=== PATIENT | female | born 1995 | race Caucasian/White ===

== ENCOUNTER 2018-06-23 10:37 | Observation (INO) | payer BC ==
[2018-06-23] MEDS ORDERED: Water For Irrigation,Sterile 1,000 ML Container IRR PRN (11:53)
[2018-06-23] MEDS ORDERED: Misoprostol 200 MCG Tab PO PRN (11:53)
[2018-06-23] MEDS ORDERED: Tranexamic Acid 1,000 MG in Sodium Chloride 0.9% 100 ML IV PRN (11:53)
[2018-06-23] MEDS ORDERED: Lidocaine 1% 50 ML MDV INJECT PRN (11:53)
[2018-06-23] MEDS ORDERED: Carboprost Tromethamine 250 MCG/1 ML Amp IM PRN (11:53)
[2018-06-23] MEDS ORDERED: Sodium Chloride 0.9% 2.5 ML Syringe FLUSH PRN (11:53)
[2018-06-23] MEDS ORDERED: Calcium Gluconate 10% 1 GM/10 ML SDV IVPUSH PRN (11:53)
[2018-06-23] MEDS ORDERED: Methylergonovine 0.2 MG/1 ML Amp IM PRN (11:53)
[2018-06-23] MEDS ORDERED: Magnesium Sulfate/Water 4 GM in Premix Bag 1 BAG IV ONE (11:53)
[2018-06-23] MEDS ORDERED: Butorphanol 1 MG/ML SDV IVPUSH PRN (11:53)
[2018-06-23] MEDS ORDERED: Nalbuphine 10 MG/1 ML Vial IVPUSH PRN (11:53)
[2018-06-23] MEDS ORDERED: Sodium Chloride 0.9% 10 ML Syringe FLUSH PRN (11:53)
[2018-06-23] MEDS ORDERED: Lactated Ringers 1,000 ML IV SCH (12:00)
[2018-06-23] MEDS ORDERED: Oxytocin/0.9 % Sodium Chloride 30 UNIT/500 ML BAG IV SCH (12:00)
[2018-06-23] MEDS ORDERED: Magnesium Sulfate/Water 40 GM/1,000 ML BAG IV SCH (12:00)
[2018-06-23 15:48] LABS: CHLORIDE,CL 102 mmol/L (98-107); SODIUM,NA 132 mmol/L (136-145)
[2018-06-24] MEDS ORDERED: Betamethasone Acetate/Betamethasone Sod Phosphate 30 MG/5 ML MDV IM SCH (10:00)
== END 2018-06-23 17:10 ==
LOC: MW.OBCHECK 10:37 → MW.OB 10:45 → MW.OBCHECK 12:17
PROVIDERS: ADMIT Obstetrics & Gynecology; ATTEND Obstetrics & Gynecology
DX: O69.81X0 Labor and delivery complicated by cord around neck, without compression, not applicable or unspecified (principal); Z3A.30 30 weeks gestation of pregnancy
CPT/HCPCS: 36415; 59025; 80053; 81001; 83735; 85027; 86850; 86900; 86901; 96374; G0378; J3475; J7120

== ENCOUNTER 2020-07-20 14:20 | Emergency (ER) | payer BC ==
--- NOTE | 2020-07-20 14:32 | EDM.PDOC ---
ED HPI GENERAL MEDICAL PROBLEM - General Source of Information: Reports: Patient History Limitations: Reports: No Limitations - History of Present Illness Duration: Day(s): - General Chief Complaint: ELIGIBILITY AND OCCUPANCY INTERVIEWER Problem Stated Complaint: BLEEDING DURING Time Seen by Provider: 07/20/20 14:21 - History of Present Illness INITIAL COMMENTS - FREE TEXT/NARRATIVE: HISTORY AND PHYSICAL: History of present illness: Patient is a 24-year-old female who presents to the emergency room with with concerns of vaginal bleeding in . She states she has had vaginal bleeding over the past 3 to 4 days. She did see an ELIGIBILITY AND OCCUPANCY INTERVIEWER, Dr Dumont at [facility], on Tuesday who did a bedside ultrasound and lab work and told her she was "okay". She was encouraged to continue to monitor her bleeding. Today she believed she was bleeding more heavily and had increased pressure/cramping in her pelvis. LMP mid May 2020, believes she is approximately 10 weeks. 2, para 1. No previous ELIGIBILITY AND OCCUPANCY INTERVIEWER complications. Patient denies any fever, chills, headache, change in vision, syncope or near syncope. Denies any chest pain, back pain, shortness of breath or cough. Denies any nausea, vomiting, diarrhea, constipation or dysuria. Has not noted any blood in urine or stool. Patient has been eating and drinking appropriately. Review of systems: As per history of present illness and below otherwise all systems reviewed and negative. Past medical history: As per history of present illness and as reviewed below otherwise noncontributory. Surgical history: As per history of present illness and as reviewed below otherwise noncontributory. Social history: See social history for further information Family history: As per history of present illness and as reviewed below otherwise noncontributory. Physical exam: General: Well developed and well nourished. Alert and orientated x 3. Nontoxic in appearance and in no acute distress. Vital signs are stable and have been reviewed by me. Nursing notes were reviewed. HEENT: Atraumatic, normocephalic, pupils equal and reactive bilaterally, negative for conjunctival pallor or scleral icterus, mucous membranes moist, TMs normal bilaterally, throat clear, neck supple, nontender, trachea midline. No drooling or trismus noted. No meningeal signs. No hot potato voice noted. Lungs: Clear to auscultation, breath sounds equal bilaterally, chest nontender. Normal work of breathing, no accessory muscles used. Heart: S1S2, regular rate and rhythm without overt murmur Abdomen: Soft, nondistended, nontender. Negative for masses or hepatosplenomegaly. Negative for costovertebral tenderness. Pelvis: Stable nontender. Genitourinary: Patient declines wanting a pelvic exam done. Skin: Intact, warm, dry. No lesions or rashes noted. Hematologic: No petechiae or purpra. Mucosa appropriate color and normal nail bed color and refill. Extremities: Atraumatic, moves all extremities per self without difficulty or deficits, negative for cords or calf pain. Neurovascular unremarkable. Neuro: Awake, alert, oriented. Cranial nerves II through XII unremarkable. Cereb ellum unremarkable. Motor and sensory unremarkable throughout. Exam nonfocal. Psychiatric: Mood and affect are appropriate. Normal thought process. Answering questions appropriately. Notes: Patient declines wanting to have a pelvic exam done stating that her ELIGIBILITY AND OCCUPANCY INTERVIEWER just did one on Tuesday. She is requesting lab work and ultrasound. Ultrasound shows a single live IUP, heart rate 195, gestational age of 9 weeks and 5 days. Lab work is unremarkable. I have spoken with the patient and discussed today's findings, in addition to providing specific details for plan of care. Reassessment at the time of disposition demonstrates that the patient is in no acute distress. The patient has remained stable throughout the entire ED visit and is without objective evidence for acute process requiring urgent intervention or hospitalization. The patient is stable for discharge, counseling was provided and we discussed in great detail signs and symptoms that would prompt them to return to the Emergency Department. We discussed the need for follow-up with her ELIGIBILITY AND OCCUPANCY INTERVIEWER and repeating her quantitative hCG, to call on Tuesday. Supportive care measures were reviewed and discussed. Voices understanding and is agreeable to plan of care. Denies any further questions or concerns at this time. Diagnostics: CBC, CMP, UA, urine culture, quantitative hCG, OB ultrasound Therapeutics: None Prescription: None Impression: Threatened miscarriage Plan: 1. Please start and/or continue to take your vitamin with folic acid once daily. 2. Pelvic rest until cleared by your OBGYN (no tampons, sex, etc...) 3. Tylenol as needed for pain management. 4. Follow up with her ELIGIBILITY AND OCCUPANCY INTERVIEWER in the next 1-2 days, you should have a repeat quantitative HCG on Tuesday. 5. Return to the ED as needed and as discussed. Definitive disposition and diagnosis as appropriate pending reevaluation and review of above. (Senthil Oconnor) - Related Data Allergies Allergy/AdvReac Type Severity Reaction Status Date / Time No Known Allergies Allergy Verified 07/20/20 14:42 Home Meds: Home Meds Escitalopram [Lexapro] 10 mg PO DAILY 07/12/18 [History] Ibuprofen [Motrin] 800 mg PO Q8H PRN 5 Days #30 tablet 08/21/18 [Rx] Past Medical History - Past Health History Medical/Surgical History: Denies Medical/Surgical History ELIGIBILITY AND OCCUPANCY INTERVIEWER History: Reports: Musculoskeletal History: Reports: Other (See Below) Other Musculoskeletal History: Scoliosis - Infectious Disease History Infectious Disease History: Reports: Chicken Pox - Past Surgical History HEENT Surgical History: Reports: Oral Surgery Musculoskeletal Surgical History: Reports: None Social & Family History - Family History Family Medical History: Noncontributory Cardiac: Reports: Hypertension Respiratory: Reports: Other (See Below) Other Respiratory Family Hisory: Legionnaire's Neurological: Reports: Parkinson's Oncologic: Reports: Breast, Cervix, Skin, Other (See Below) Other Oncologic Family History: Basil cell and squameous cell carcinoma - Caffeine Use Caffeine Use: Reports: Soda ED ROS GENERAL - Review of Systems Review Of Systems: Comprehensive ROS is negative, except as noted in HPI. ED EXAM - Physical Exam Exam: See Below (See dictation) ED Add Procedures - Additional/Other Procedure(s) Procedure(s) (Free Text): PROCEDURE NOTE: Limited OB / Pelvic Ultrasound (transabdominal) Indication: Confirm a live IUP All images obtained and evaluated by me. Images archived and saved. Findings: 1. Uterus Identified 2. No significant Free Fluid Noted 3. Intrauterine identified 4. heart tones measured with visual count. M-mode not accessible secondary to the fetus moving so much. Rate between 160 and 170. Interpretation: Live IUP Signed by Yovany Funez M.D. Attending physician note I have seen and evaluated the patient with the advanced practice provider. Chief Complaint: Vaginal bleeding Brief HPI: Approximately 10 weeks with vaginal bleeding and some minor cramping. ROS: Reviewed and agree Focused Exam: VITAL SIGNS: Reviewed. GENERAL: Awake, conversant, GCS 15, toxic and well-appearing HEAD: No visible signs of trauma EYES: Pupils equal, EOM grossly intact EARS: Hearing grossly intact. MOUTH: No visible lesions NECK: Appears supple CHEST: Breathing comfortably, clear lung sounds CARDIAC: Regular rhythm ABDOMEN: Soft, nontender, benign exam NEUROLOGIC EXAM: Awake and Alert, non-focal SKIN: No visible rashes EXTREMITIES: No deformities noted VASCULAR: Appears well perfused Assessment & Plan: 5 IUP identified. No evidence of ectopic or rupture. Likely threatened miscarriage. We will order formal ultrasound for complete evaluation. ABO Rh pending. (Yovany Funez) Course - Vital Signs Last Recorded V/S: Last Vital Signs Temp 96.9 F 07/20/20 14:35 Pulse 72 07/20/20 16:21 Resp 18 07/20/20 16:21 BP 97/65 07/20/20 16:21 Pulse Ox 98 07/20/20 16:21 - Orders/Labs/Meds Orders: Active Orders 24 hr Category Date Time Status CULTURE URINE [RM] Stat Lab 07/20/20 15:19 Received Labs: Laboratory Tests 07/20/20 07/20/20 07/20/20 Range/Units 14:53 14:53 14:53 WBC 5.73 (4.0-11.0) K/uL RBC 4.75 (4.30-5.90) M/uL Hgb 11.9 L (12.0-16.0) g/dL Hct 36.9 (36.0-46.0) % MCV 77.7 L (80.0-98.0) fL MCH 25.1 L (27.0-32.0) pg MCHC 32.2 (31.0-37.0) g/dL RDW Std Deviation 45.0 (28.0-62.0) fl RDW Coeff of Alejandro 16 H (11.0-15.0) % Plt Count 239 (150-400) K/uL MPV 11.80 (7.40-12.00) fL Neut % (Auto) 67.4 (48.0-80.0) % Lymph % (Auto) 27.9 (16.0-40.0) % Alfalfa % (Auto) 3.5 (0.0-15.0) % Eos % (Auto) 1.0 (0.0-7.0) % Baso % (Auto) 0.2 (0.0-1.5) % Neut # (Auto) 3.9 (1.4-5.7) K/uL Lymph # (Auto) 1.6 (0.6-2.4) K/uL Alfalfa # (Auto) 0.2 (0.0-0.8) K/uL Eos # (Auto) 0.1 (0.0-0.7) K/uL Baso # (Auto) 0.0 (0.0-0.1) K/uL Nucleated RBC % 0.0 /100WBC Nucleated RBCs # 0 K/uL HCG, Quant 79007.0 mIU/mL Urine Color Urine Appearance Urine pH (5.0-8.0) Ur Specific Ferriday (1.001-1.035) Urine Protein (NEGATIVE) mg/dL Urine Glucose (UA) (NEGATIVE) mg/dL Urine Ketones (NEGATIVE) mg/dL Urine Occult Blood (NEGATIVE) Urine Nitrite (NEGATIVE) Urine Bilirubin (NEGATIVE) Urine Urobilinogen (<2.0) EU/dL Ur Leukocyte Esterase (NEGATIVE) Urine RBC (0-2/HPF) Urine WBC (0-5/HPF) Ur Epithelial Cells (NONE-FEW) Urine Bacteria (NEGATIVE) Urine Mucus (NONE-MOD) Blood Type A POSITIVE 07/20/20 Range/Units 15:19 WBC (4.0-11.0) K/uL RBC (4.30-5.90) M/uL Hgb (12.0-16.0) g/dL Hct (36.0-46.0) % MCV (80.0-98.0) fL MCH (27.0-32.0) pg MCHC (31.0-37.0) g/dL RDW Std Deviation (28.0-62.0) fl RDW Coeff of Alejandro (11.0-15.0) % Plt Count (150-400) K/uL MPV (7.40-12.00) fL Neut % (Auto) (48.0-80.0) % Lymph % (Auto) (16.0-40.0) % Alfalfa % (Auto) (0.0-15.0) % Eos % (Auto) (0.0-7.0) % Baso % (Auto) (0.0-1.5) % Neut # (Auto) (1.4-5.7) K/uL Lymph # (Auto) (0.6-2.4) K/uL Alfalfa # (Auto) (0.0-0.8) K/uL Eos # (Auto) (0.0-0.7) K/uL Baso # (Auto) (0.0-0.1) K/uL Nucleated RBC % /100WBC Nucleated RBCs # K/uL HCG, Quant mIU/mL Urine Color YELLOW Urine Appearance CLEAR Urine pH 7.5 (5.0-8.0) Ur Specific Ferriday 1.025 (1.001-1.035) Urine Protein NEGATIVE (NEGATIVE) mg/dL Urine Glucose (UA) NEGATIVE (NEGATIVE) mg/dL Urine Ketones NEGATIVE (NEGATIVE) mg/dL Urine Occult Blood LARGE H (NEGATIVE) Urine Nitrite NEGATIVE (NEGATIVE) Urine Bilirubin NEGATIVE (NEGATIVE) Urine Urobilinogen 2.0 H (<2.0) EU/dL Ur Leukocyte Esterase TRACE H (NEGATIVE) Urine RBC 1-3 (0-2/HPF) Urine WBC 0-2 (0-5/HPF) Ur Epithelial Cells FEW (NONE-FEW) Urine Bacteria FEW (NEGATIVE) Urine Mucus LIGHT (NONE-MOD) Blood Type Departure - Departure Time of Disposition: 16:16 - Departure Disposition: Home, Self-Care 01 Clinical Impression: Threatened miscarriage in early - Discharge Information Instructions: Threatened Miscarriage, [id number] Referrals: PCP,None [Primary Care Provider] - Forms: ED Department Discharge Additional Instructions: The following information is given to patients seen in the emergency department who are being discharged to home. This information is to outline your options for follow-up care. We provide all patients seen in our emergency department with a follow-up referral. The need for follow-up, as well as the timing and circumstances, are variable depending upon the specifics of your emergency department visit. If you don't have a primary care physician on staff, we will provide you with a referral. We always advise you to contact your personal physician following an emergency department visit to inform them of the circumstance of the visit and for follow-up with them and/or the need for any referrals to a consulting specialist. The emergency department will also refer you to a specialist when appropriate. This referral assures that you have the opportunity for follow-up care with a specialist. All of these measure are taken in an effort to provide you with optimal care, which includes your follow-up. Under all circumstances we always encourage you to contact your private physician who remains a resource for coordinating your care. When calling for follow-up care, please make the office aware that this follow-up is from your recent emergency room visit. If for any reason you are refused follow-up, please contact the [facility] Emergency Department at and asked to speak to the emergency department charge nurse. [facility] [address] [place] [address] [facility] [address] [place] [id number] Thank you for choosing the [facility] emergency department in [place] for your medical needs today. It was a pleasure caring for you. Today you were seen in the emergency department for vaginal bleeding in . 1. Please start and/or continue to take your vitamin with folic acid once daily. 2. Pelvic rest until cleared by your OBGYN (no tampons, sex, etc...) 3. Tylenol as needed for pain management. 4. Follow up with her ELIGIBILITY AND OCCUPANCY INTERVIEWER in the next 1-2 days, you should have a repeat quantitative HCG on Tuesday. 5. Return to the ED as needed and as discussed. Sepsis Event Note (ED) - Focused Exam Vital Signs: Vital Signs Temp Pulse Resp BP Pulse Ox 07/20/20 16:21 72 18 97/65 98 07/20/20 15:23 78 18 108/56 L 99 07/20/20 14:35 96.9 F 80 16 112/51 L 18 L - My Orders Last 24 Hours: My Active Orders 07/20/20 15:19 CULTURE URINE [RM] Stat - Assessment/Plan Last 24 Hours: My Active Orders 07/20/20 15:19 CULTURE URINE [RM] Stat
--- NOTE | 2020-07-20 15:37 | US ---
INDICATION: . Bleeding. Estimated gestational age based on last menstrual period 10 weeks 5 days with an EBONIE of 02/10/2021. FINDINGS: An early OB also was performed. There is a single intrauterine gestational sac with a mean sac diameter is 3 cm. This corresponds to 8 week 3 day gestation. There is an embryo seen within the gestational sac with a crown-rump length of 2.8 cm which corresponds to a gestational age of 9 weeks 5 days. There is cardiac activity seen area 195 beats per minute. The cervix length measures 4.6 cm. The right measures 2.5 x 2.8 x 1.4 cm. The left ovary measures 2.7 x 2.1 x 1.5 cm. The ovaries are unremarkable. There is arterial Doppler waveforms identified in both ovaries. There is no free fluid in the pelvis. IMPRESSION: Single living intrauterine gestation at a sonographic estimated gestational age of 9 weeks 5 days. Dictated by Bryon Will MD @ Jul 20 2020 3:29PM Signed by Dr. Bryon Will @ Jul 20 2020 3:34PM
[2020-07-20 16:33] VITALS: BP 97/65; PULSE 72
== END 2020-07-20 16:31 | disposition home or self-care (01) ==
LOC: MW.ED 14:20
DX: O20.0 Threatened abortion (principal); O99.891 Other specified diseases and conditions complicating pregnancy; M41.9 Scoliosis, unspecified; Z79.899 Other long term (current) drug therapy; Z3A.09 9 weeks gestation of pregnancy
CPT/HCPCS: 36415; 76801; 76801-26; 81001; 84702; 85025; 86900; 86901; 87086; 99284; 99284-25

== ENCOUNTER 2020-07-20 23:27 | Emergency (ER) | payer BC ==
[2020-07-20 23:55] VITALS: BP 166/76; PULSE 85
[2020-07-21] MEDS: Morphine 4 MG/ML Syringe IVPUSH ONE ×2 (00:34→00:56)
--- NOTE | 2020-07-21 00:40 | EDM.PDOC ---
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 The patient states that she is a patient of Dr. Moya and that she is approximately 10 weeks . She states that she has had one other which was full-term. She denies any history of ectopic or prior history of miscarriage. The patient states that she was evaluated earlier today for vaginal bleeding and pain. She states that she was discharged home and was told to come back if she had worsening bleeding. She states that since discharge she has been experiencing more vaginal bleeding and cramping in her pelvic area. She states that she is now passing clots. She denies any profuse vaginal bleeding or loss of fluid. She denies any dysuria, hematuria, vaginal discharge. She denies any other symptoms. REVIEW OF SYSTEMS: Constitutional: Denies fever, chills. Eyes: Denies eye pain Ears, Nose, Mouth, & Throat: Denies earache Cardiovascular: Denies chest pain Respiratory: Denies shortness of breath Gastrointestinal: Denies Nausea, vomiting, diarrhea, hematochezia. Genitourinary: Positive for vaginal bleeding and pelvic cramps. Denies hematuria, dysuria, vaginal discharge Skin:Denies a rash Neurological: Denies blurred vision Psychiatric: Denies depression PAST MEDICAL HISTORY: As per history of present illness and as reviewed below otherwise noncontributory. SURGICAL HISTORY: As per history of present illness and as reviewed below otherwise noncontributory. LMP: Approximately 10 weeks ago SOCIAL HISTORY: As per history of present illness and as reviewed below otherwise noncontributory. FAMILY HISTORY: As per history of present illness and as reviewed below otherwise noncontributory. EXAMINATION OF ORGAN SYSTEMS/BODY AREAS: Constitutional: Blood pressure is 166/76, heart rate 85, respiratory rate 18 with an oxygen saturation 99% on room air. Temperature 36.3. General: Young woman who is crying Psychiatric: Appears anxious and is crying Eyes: No scleral icterus or conjunctival erythema ENMT: Moist mucous membranes. No pharyngeal erythema Cardiovascular: Regular, rate, and rythym. No gallops, murmurs, or rubs. Bilateral upper extremity pulses symmetric and intact. No peripheral edema. No JVD. Respiratory: Lungs clear to auscultation bilaterally. No wheezes, rales, or rhonchi. Gastrointestinal: Soft, non-tender, non-distended. Normoactive bowel sounds Genitourinary: No suprapubic tenderness on bimanual examination a fluid like structure could be palpated in the vaginal canal. There was some bleeding and the patient did have a clot on her pad. Cervical os does appear to be open. I cannot visualize any tissues. Pelvic examination was performed with RN software quality engineer in presence Musculoskeletal: Normal range of motion. Skin: No lesions or abrasions. Neurological: Alert, GCS 15 MEDICAL DECISION MAKING AND COURSE IN THE ED WITH INTERPRETATION/REVIEW OF DIAGNOSTIC STUDIES: This is a 24-year-old woman with a past medical history of who is approximately 10 weeks who had visited our emergency department earlier yesterday afternoon who comes to the emergency department with vaginal bleeding and pelvic cramping with an examination revealing clots and open cervix. At this time I did perform a bedside ultrasound and had difficulty with obtaining a heart rate. At this time I do suspect the p atient is having a miscarriage however we will obtain a OB ultrasound as bedside ultrasound was inadequate. Will obtain CBC and quantitative hCG. I did review the patient's chart from earlier today for which she had a hemoglobin of 11.9, quantitative hCG of 33,000 and a urinalysis revealing hematuria. The patient's blood type was a positive therefore I do not believe RhoGam is necessary and the re is no need for repeat type and screen. We will provide the patient with morphine IV for pain control. Laboratory: CBC reveals a hemoglobin 11.5 hematocrit of 35.4. Quantitative hCG is 26,117 which is decreased from earlier today at 33,000. The radiological images were viewed by myself along with reading the report from the radiologist. OB ultrasound reveals nonviable gestation. Miscarriage is in progress. I contacted Dr. Wheeler who is a partner with Dr. Metcalf and discussed the case with her. At this time Dr. Wheeler stated that given that the patient is not having heavy bleeding the patient can follow-up in clinic tomorrow morning for D&C. I did discuss this with the patient and discussed with her that if she has any increased bleeding and soaks for who greater than 2-3 pads per hour that she needs to return to the emergency department. Patient was amenable to discharge at this time and had no further questions. DISPOSITION: The patient was discharged home in stable condition. The patient will follow up with obstetrics clinic tomorrow CONDITION: Fair PROCEDURES: None FINAL IMPRESSION(S)/DIAGNOSES: 1. Acute vaginal bleeding secondary to inevitable Osmany Dexter M.D. 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: Musculoskeletal History: Reports: Other (See Below) Other Musculoskeletal History: Scoliosis Psychiatric History: Reports: Depression - Infectious Disease History Infectious Disease History: Reports: Chicken Pox - Past Surgical History HEENT Surgical History: Reports: Oral Surgery Musculoskeletal Surgical History: Reports: None Social & Family History - Family History Family Medical History: Noncontributory Cardiac: Reports: Hypertension Respiratory: Reports: Other (See Below) Other Respiratory Family Hisory: Legionnaire's Neurological: Reports: Parkinson's Oncologic: Reports: Breast, Cervix, Skin, Other (See Below) Other Oncologic Family History: Basil cell and squameous cell carcinoma - Tobacco Use Tobacco Use Status *Q: Never Tobacco User Second Hand Smoke Exposure: No - Caffeine Use Caffeine Use: Reports: Soda - Recreational Drug Use Recreational Drug Use: No ED ROS GENERAL - Review of Systems Review Of Systems: See Below ED EXAM, GENERAL - Physical Exam Exam: See Below Course - Vital Signs Last Recorded V/S: Last Vital Signs Temp 36.3 C 07/20/20 23:46 Pulse 85 07/20/20 23:46 Resp 18 07/20/20 23:46 BP 166/76 H 07/20/20 23:46 Pulse Ox 99 10/18/20 23:46 - Orders/Labs/Meds Labs: Laboratory Tests 07/21/20 07/21/20 Range/Units 01:00 01:00 WBC 8.68 (4.0-11.0) K/uL RBC 4.59 (4.30-5.90) M/uL Hgb 11.5 L (12.0-16.0) g/dL Hct 35.4 L (36.0-46.0) % MCV 77.1 L (80.0-98.0) fL MCH 25.1 L (27.0-32.0) pg MCHC 32.5 (31.0-37.0) g/dL RDW Std Deviation 43.4 (28.0-62.0) fl RDW Coeff of Alejandro 16 H (11.0-15.0) % Plt Count 225 (150-400) K/uL MPV 11.70 (7.40-12.00) fL Add Manual Diff YES Neutrophils % (Manual) 79 (48.0-80.0) % Lymphocytes % (Manual) 16 (16.0-40.0) % Monocytes % (Manual) 3 (0.0-15.0) % Eosinophils % (Manual) 2 (0.0-7.0) % Absolute Seg Neuts 6.9 H (1.4-5.7) Lymphocytes # (Manual) 1.4 (0.6-2.4) Monocytes # (Manual) 0.3 (0.0-0.8) Eosinophils # (Manual) 0.2 (0.0-0.7) HCG, Quant 04314.0 mIU/mL Meds: Medications Discontinued Medications Generic Name Dose Route Start Last Admin Trade Name Freq PRN Reason Stop Dose Admin Morphine Sulfate 4 mg 07/21/20 00:23 07/21/20 00:56 Morphine IVPUSH 07/21/20 00:24 Not Given ONETIME ONE Morphine Sulfate 4 mg 07/21/20 00:54 07/21/20 00:56 Morphine IM 07/21/20 00:55 4 mg ONETIME ONE Administration Departure - Departure Time of Disposition: 01:32 Disposition: Home, Self-Care 01 Condition: Fair Clinical Impression: Inevitable spontaneous - Discharge Information *PRESCRIPTION DRUG MONITORING PROGRAM REVIEWED*: No *COPY OF PRESCRIPTION DRUG MONITORING REPORT IN PATIENT HAYDER: No Instructions: Miscarriage, [id number], Managing Loss Referrals: Karen Metcalf MD [Primary Care Provider] - Forms: ED Department Discharge Additional Instructions: The patient is informed of any results of their evaluation and diagnostic workup and all questions are answered. They are given discharge instructions and return precautions. The patient is stable for discharge. The patient states they understand and agree with the plan and that they will return if their symptoms get worse or if they have any new concerns. The following information is given to patients seen in the emergency department who are being discharged to home. This information is to outline your options for follow-up care. We provide all patients seen in our emergency department with a follow-up referral. The need for follow-up, as well as the timing and circumstances, are variable depending upon the specifics of your emergency department visit. If you don't have a primary care physician on staff, we will provide you with a referral. We always advise you to contact your personal physician following an emergency department visit to inform them of the circumstance of the visit and for follow-up with them and/or the need for any referrals to a consulting specialist. The emergency department will also refer you to a specialist when appropriate. This referral assures that you have the opportunity for follow-up care with a specialist. All of these measure are taken in an effort to provide you with optimal care, which includes your follow-up. Under all circumstances we always encourage you to contact your private physician who remains a resource for coordinating your care. When calling for follow-up care, please make the office aware that this follow-up is from your recent emergency room visit. If for any reason you are refused follow-up, please contact the [facility] Emergency Department at and asked to speak to the emergency department charge nurse. Please follow-up with Dr. Burton tomorrow morning in her clinic. Please return to the emergency department if you soak greater than 2-3 pads per hour. Sepsis Event Note (ED) - Evaluation Sepsis Screening Result: No Definite Risk - Focused Exam Vital Signs: Vital Signs Temp Pulse Resp BP Pulse Ox 07/20/20 23:46 36.3 C 85 18 166/76 H 99
[2020-07-21] MEDS ORDERED: Morphine 4 MG/ML Syringe IM ONE (00:54)
--- NOTE | 2020-07-21 01:05 | US ---
INDICATION: Miscarriage in progress TECHNIQUE: Ultrasound OB pelvis transabdominal. Real-time haynes-scale imaging of the pelvis was performed. COMPARISON: July 20, 2020 FINDINGS: Sonographic imaging demonstrates a single gestation located in the vaginal canal. The gestational sac was in the uterus on a study done yesterday. No cardiac activity is identified. IMPRESSION: Nonviable gestation. Miscarriage in progress. Dictated by Mariangel Botello MD @ Jul 21 2020 1:01AM Signed by Dr. Mariangel Botello @ Jul 21 2020 1:04AM
== END 2020-07-21 01:45 | disposition home or self-care (01) ==
LOC: MW.ED 23:27
DX: O03.4 Incomplete spontaneous abortion without complication (principal); F32.9 Major depressive disorder, single episode, unspecified; Z79.899 Other long term (current) drug therapy
CPT/HCPCS: 36415; 76815; 84702; 85025; 96372; 99284; J2270